=== PATIENT | female | born 1975 | race Caucasian/White ===

== ENCOUNTER 2018-07-18 09:21 | Day surgery (SDC) | payer OTHER ==
[2018-07-08 16:19] VITALS: BMI 22.3
[2018-07-18] MEDS ORDERED: VANCOMYCIN 1,000 MG VIAL (RESTRICTED TO ID ONLY) ONE (11:39)
[2018-07-18] MEDS ORDERED: MIDAZOLAM HCL 2 MG/2 ML SINGLE DOSE VIAL ONE (11:51)
[2018-07-18] MEDS ORDERED: BUPIVACAINE LIPOSOME/PF (EXPAREL) 266 MG/20 ML VIAL ONE (11:52)
[2018-07-18] MEDS ORDERED: BUPIVACAINE HCL/PF (5 MG/ML) 30 ML VIAL IJ ONE (11:52)
[2018-07-18] MEDS ORDERED: ONDANSETRON 4 MG/2 ML VIAL IVPUSH PRN (12:23)
[2018-07-18] MEDS ORDERED: oxyCODONE HCL 5 MG TABLET PO PRN (12:23)
[2018-07-18] MEDS ORDERED: LACTATED RINGERS SOLUTION 1,000 ML IV SCH (12:30)
[2018-07-18] MEDS ORDERED: TRANEXAMIC ACID 1000 MG/10 ML VIAL ONE (13:07)
[2018-07-18] MEDS ORDERED: DEXAMETHASONE SOD PHOSPHATE 4 MG/1 ML VIAL ONE (13:30)
[2018-07-18] MEDS ORDERED: ONDANSETRON 4 MG/2 ML VIAL ONE ×2 (13:30→15:05)
[2018-07-18] MEDS ORDERED: KETOROLAC TROMETHAMINE 30 MG/1 ML VIAL ONE (13:30)
[2018-07-18] MEDS ORDERED: PROPOFOL 20 ML ONE (14:20)
--- NOTE | 2018-07-18 14:39 | DS ---
Physical Examination Vital Signs: Vital Signs Temperature 98.6 F 07/18/18 09:47 Pulse Rate 66 07/18/18 09:47 Respiratory Rate 18 07/18/18 10:16 Blood Pressure 137/94 07/18/18 09:47 O2 Sat by Pulse Oximetry (%) 97 07/18/18 10:16 Discharge Summary Reason For Visit: ANTERIOR CRUCIATE LIGAMENT TEAR, RIGHT KNEE Condition: Good - Instructions Diet, Activity, Other Instructions: Post Operative Instructions: ACL Reconstruction Dr. Husam Melo 1. Pain following an ACL reconstruction is variable and can be significant. Some patients will have more pain than others. You have been provided with a prescription for medication that contains a narcotic. You are not allowed to drive while on this medication. You should take Tylenol (Acetaminophen) when taking the pain medication ( it will NOT result in an overdose). Feel free to take medications such as Ibuprofen or Naprosyn in addition to the pain medicine if you do not have any problems with the NSAID class of medications. YOU MUST TAKE ASPIRIN 325 MG TWICE A DAY FOR 10 DAYS TO DRECREASE THE RISKS OF BLOOD CLOTS. START THE ASPIRIN TONIGHT. 2. You should not remove the bandages for 7 days. You may shower at that point. You are not allowed to bathe or go swimming until further notice Put band-aids on the sutures after your shower and do not put any creams or lotions over the incisions. 3. You are allowed to put some weight on the leg and bend your knee, however, you MUST use crutches for assistance unless directed otherwise. For the first 2 days you must use crutches and minimize the weight on your leg until the block wears off. 4. Getting the knee straight is your most important goal during the first 72 hours following an ACL reconstruction. Try not to lie down with a pillow under your knee. Instead the pillow should be under your ankle, thus allowing you to push your knee straight down into the bed. This is a very important milestone to achieve before your first post-surgery visit with me. 5. Swelling around the knee is normal following an ACL reconstruction. 6. The area around the knee and along the front of your choe will also become swollen and black and blue. 7. Apply ice to the knee for 15 min every hour or so. You may continue this for as many days as you like. 8. Please call the office to schedule a visit to have your sutures removed. 9. If for any reason you believe you may have an infection or are concerned, please feel free to call me. I can be reached through our office number 24 hours a day. 10. Please call our office with any questions; we will review the surgical findings during your post operative visit. Disposition: HOME - Home Medications Comprehensive Discharge Medication List: Ambulatory Orders Escitalopram Oxalate [Lexapro -] 20 mg PO HS 07/08/18 Ibuprofen [Advil -] 200 mg PO TID PRN 07/08/18 Multivitamins [Tab-A-Vit -] 1 tab PO DAILY 07/08/18 Phoenix-3S/Dha/Epa/Fish Oil [Fish Oil 1,200 mg Softgel] 1 each PO DAILY 07/08/18 Omeprazole 20 mg PO DAILY 07/08/18
--- NOTE | 2018-07-18 14:39 | OP ---
Operative Note - Note: Pre-Operative Diagnosis: Right knee ACL tear Operation: Right knee ACL reconstruction- allograft, anatomic Post-Operative Diagnosis: Same as Pre-op Surgeon: Husam Melo Community Support Worker: Thelma Fritz Anesthesia: General Operative Report Dictated: Yes
[2018-07-18] MEDS ORDERED: ONDANSETRON 4 MG/2 ML VIAL IVPUSH ONE (15:08)
[2018-07-18 17:07] VITALS: TEMP 97.5
[2018-07-18 17:47] VITALS: BP 152/96; PULSE 71
--- NOTE | 2018-07-22 15:35 | PATH ---
Surgical Pathology Report Patient Name: CARMEL FERNÁNDEZ [facility]. Rec. #: [id number] /Age/Gender: 1975 (Age: 43) / F Account: [id number] Location: [facility] AMBULATORY Taken: 07/18/2018 Received: 07/18/2018 Reported: 07/22/2018 Physicians: Husam Melo M.D. Specimen(s) Received SHAVINGS RIGHT KNEE Clinical History Right ACL tear Final Diagnosis KNEE SHAVINGS, RIGHT, ACL RECONSTRUCTION: FRAGMENTS OF DENSE FIBROCONNECTIVE TISSUE, ADIPOSE TISSUE, BONE, AND REACTIVE SYNOVIUM. Electronically Signed Carmel Mcdaniels M.D. Gross Description Received in formalin, labeled "shavings right knee," is a 4.5 x 4.0 x 0.4 cm. aggregate of fleming-yellow soft tissue fragments. A sales representative printing supplies portion is submitted in one cassette. /07/21/201807/21/2018
== END 2018-07-18 17:40 | disposition home or self-care (01) ==
LOC: FASU 09:21
PROVIDERS: ATTEND Orthopaedic Surgery
PROC: 0SBC4ZZ Excision of Right Knee Joint, Percutaneous Endoscopic Approach (ICD-10-PCS; 2018-07-18)
PROC: 0MRN47Z Replacement of Right Knee Bursa and Ligament with Autologous Tissue Substitute, Percutaneous Endoscopic Approach (ICD-10-PCS; principal; 2018-07-18 13:24)
DX: S83.511A Sprain of anterior cruciate ligament of right knee, initial encounter (principal); M17.11 Unilateral primary osteoarthritis, right knee; X58.XXXA Exposure to other specified factors, initial encounter; Y93.9 Activity, unspecified; Y92.9 Unspecified place or not applicable
CPT/HCPCS: 84703; 88304-TC; 94760; 97116-GP

== ENCOUNTER 2022-01-31 06:23 | Day surgery (SDC) | payer OTHER ==
[2022-01-24 10:53] VITALS: BMI 23.1
[2022-01-31] MEDS ORDERED: BUPIVACAINE LIPOSOME/PF (EXPAREL) 266 MG/20 ML VIAL ONE (07:07)
[2022-01-31] MEDS ORDERED: MIDAZOLAM HCL 2 MG/2 ML SINGLE DOSE VIAL ONE (07:07)
[2022-01-31] MEDS ORDERED: BUPIVACAINE HCL 100 ML ONE (07:07)
[2022-01-31] MEDS ORDERED: SODIUM CHLORIDE 0.9% P/F 10 ML VIAL IJ ONE (07:08)
[2022-01-31] MEDS ORDERED: EPINEPHrine 1:1,000 1,000 MCG/ML ML ONE (07:11)
[2022-01-31] MEDS ORDERED: VANCOMYCIN 1,000 MG VIAL (RESTRICTED TO ID ONLY) ONE (07:11)
[2022-01-31] MEDS ORDERED: PROPOFOL 40 ML ONE (07:51)
[2022-01-31] MEDS ORDERED: SUCCINYLCHOLINE CHLORIDE 200 MG/10 ML SYRINGE ONE (07:53)
[2022-01-31] MEDS ORDERED: LIDOCAINE HCL 2% JELLY 11 ML TP ONE (08:01)
[2022-01-31] MEDS ORDERED: TRANEXAMIC ACID 1000 MG/10 ML VIAL ONE (08:01)
[2022-01-31] MEDS ORDERED: ONDANSETRON 4 MG/2 ML VIAL ONE (08:01)
[2022-01-31] MEDS ORDERED: ceFAZolin SODIUM 1 GM VIAL ONE (08:01)
[2022-01-31] MEDS ORDERED: KETOROLAC TROMETHAMINE 30 MG/1 ML VIAL ONE (08:01)
[2022-01-31] MEDS ORDERED: DEXAMETHASONE SOD PHOSPHATE 4 MG/1 ML VIAL ONE (08:01)
[2022-01-31] MEDS ORDERED: oxyCODONE HCL 5 MG TABLET PO PRN ×2 (09:57)
[2022-01-31] MEDS ORDERED: ONDANSETRON 4 MG/2 ML VIAL IVPUSH PRN (09:57)
[2022-01-31] MEDS ORDERED: FENTANYL CITRATE/PF 50 MCG/ML VIAL ONE (10:09)
[2022-01-31 10:21] VITALS: RESP 16
[2022-01-31] MEDS ORDERED: ACETAMINOPHEN 500 MG TABLET (FP) PO SCH (11:00)
[2022-01-31 11:16] VITALS: TEMP 97.5
[2022-01-31 11:36] VITALS: BP 124/81; PULSE 65
== END 2022-01-31 12:10 | disposition home or self-care (01) ==
LOC: FASU 06:23
PROVIDERS: ATTEND Orthopaedic Surgery
PROC: 0MRN47Z Replacement of Right Knee Bursa and Ligament with Autologous Tissue Substitute, Percutaneous Endoscopic Approach (ICD-10-PCS; principal; 2022-01-31 08:18)
DX: S83.511A Sprain of anterior cruciate ligament of right knee, initial encounter (principal); M23.51 Chronic instability of knee, right knee; X58.XXXA Exposure to other specified factors, initial encounter; Y93.9 Activity, unspecified; Y92.9 Unspecified place or not applicable
CPT/HCPCS: 81025; 94760; 97116-GP; C1713